=== PATIENT | male | born 1980 | race Caucasian/White ===

== ENCOUNTER 2019-10-07 02:48 | Emergency (ER) | payer OTHER, SELFPAY ==
[2019-10-07 02:50] VITALS: BP 145/83; PULSE 99; RESP 17; TEMP 37.1; O2SAT 95; BMI 39.9
--- NOTE | 2019-10-07 03:08 | EKG12_ITS ---
Test Reason : DYSRHYTHMIA Blood Pressure : / mmHG Vent. Rate : 095 BPM Atrial Rate : 095 BPM P-R Int : 136 ms QRS Dur : 106 ms QT Int : 356 ms P-R-T Axes : 051 -18 042 degrees QTc Int : 447 ms Normal sinus rhythm Normal ECG Confirmed by BLANCA MARTINEZ ([id number]), society editor GARRETT SOFIA ([id number] on 10/09/2019 2:33:57 PM Referred By: MANDO Confirmed By:BLANCA MARTINEZ
--- NOTE | 2019-10-07 03:08 | RAD_ITS ---
STUDY: X-RAY CHEST REASON FOR EXAM: Male, 38 years old. CHEST CONGESTION WITH TIGHTNESS IN CHEST X 2+ DAYS TECHNIQUE: Frontal and lateral views of the chest. COMPARISON: None. FINDINGS: Right midlung zone nodular opacity There is no demonstrated pleural abnormality. Normal size heart. Normal mediastinum and rach. Normal visualized pulmonary arteries. Normal visualized aortic arch and descending thoracic aorta. There are diffuse degenerative changes of the visualized thoracic spine. Normal visualized ribs, clavicles, and shoulders. There is no demonstrated abnormality of the visualized soft tissue structures of the upper abdomen. RAD/Chest PA and Lateral IMPRESSION: Right midlung zone nodular opacity. This may be infectious inflammatory etiology. However recommend 3-4 week follow-up to ensure resolution. Underlying neoplasm cannot be excluded. Electronically Signed: Andres Drew, at 4:49 EDT Tel , Service support ,
--- NOTE | 2019-10-07 03:15 | ED.DCSUM_ITS ---
History of Present Illness Chief Complaint: Chest Other Detail of Chief Complaint: Shortness of breath Informant: Patient Onset: Hours - Several Activity at onset: Rest Timing: Continuous Quality: Wheezing Current Severity: Mild Maximum Severity: Moderate Worsened by: Exertion Relieved by: Albuterol Associated Symptoms: Cough - Nonproductive, Fever - Subjective low-grade according to patient, Sore throat - Several days ago, resolved now. Negative for: Ear pain Chest Pain: Tightness - Mild Narrative: Patient has been coughing for a few days without fevers, he had a sore throat a couple days ago and called into his primary care doctor, they prescribed him a azithromycin which he has been taking for now the third day, he was not seen or evaluated. His sore throat is gone but the cough persisted and now he feels congested in his chest, like he cannot get anything out, having a little tightness, more shortness of breath than discomfort, he took some puffs from his 's albuterol inhaler which helped and he presents for evaluation. Denies any swelling in his legs. His is a nurse here, has not been ill recently, and he has had no contact with anyone he knows of with coronavirus infection. He presents during the national coronavirus emergency declaration. He has no past medical history, no history of asthma. No recent travel. No history of DVT or PE. Past Medical History - Allergies and Home Meds Allergies/Adverse Reactions: Allergies No Known Allergies Allergy (Verified 04/28/15 22:38) Primary Care Physician: Montez Jeffries MD [Primary Care Provider] - Past Medical History: None Lives: Spouse/ Significant Other Smoking Status: Never smoker Review of Systems General: Reports: Fever, Subjective. Denies: Chills, Sweats Eyes: Denies: Visual changes - bilaterally, Diplopia ENT: Reports: Sore throat - Resolved. See HPI.. Denies: Bilateral ear pain, Rhinorrhea Cardiovascular: Reports: Chest pain. Denies: Palpitations, Heart racing Respiratory: Reports: Dyspnea, Cough. Denies: Sputum, Orthopnea Gastrointestinal: Denies: Abdominal pain, Nausea, Vomiting, Diarrhea, Melena, Hematochezia Genitourinary: Denies: Dysuria, Hematuria, Frequency Musculoskeletal: Denies: Myalgias, Neck pain, Back pain, Swelling, Extremity Pain Skin: Denies: Rash, Wounds Neurological: Denies: Headache, Weakness, Numbness Physical Exam Vital Signs/Narrative: Vital Signs Temp Pulse Resp BP Pulse Ox 10/07/19 02:50 98.8 F 99 17 145/83 H 95 Inital Vital Signs reviewed: Yes General: Well nourished, Well developed, No Acute Distress - Conversive in full sentences Head: Normocephalic, Atraumatic Eyes: Perrl, EOMI ENT: Moist mucous membranes, No rhinorrhea, - - Posterior oropharynx clear and normal Neck: Supple, Nontender, No lymphadenopathy Cardiovascular: Regular rate, Regular rhythm, No murmurs, Normal S1, Normal S2. Negative for: Tachycardia Respiratory: No distress, Chest nontender, Wheezing - Slight inspiratory bilaterally. Negative for: Rales, Rhonchi Abdomen: Soft, Nontender, Nondistended, Normal bowel sounds Back: Nontender, Normal Inspection Extremities: Nontender, No edema. Negative for: Calf Tenderness Skin: Normal color, No rash, No Trauma Neurological: Alert, Oriented x3, Cranial nerves II-XII grossly intact, Normal Strength, Normal Sensation, Normal Gait Psychological: Normal affect, Normal Mood Diagnostic/Tx/Re-eval Impressions Chest X-Ray 10/07/19 03:08 IMPRESSION: Right midlung zone nodular opacity. This may be infectious inflammatory etiology. However recommend 3-4 week follow-up to ensure resolution. Underlying neoplasm cannot be excluded. Electronically Signed: Andres Viki, at 4:49 EDT Tel , Service support , 10/07/19 03:08 Chest PA and Lateral [RAD] Stat Laboratory Results 10/07/19 10/07/19 03:20 03:20 WBC 7.4 RBC 5.49 Hgb 15.6 Hct 46.4 MCV 84.5 MCH 28.4 MCHC 33.6 RDW Std Deviation 43.4 RDW Coeff of Ceasar 14.3 Plt Count 189 MPV 10.6 Immature Gran % (Auto) 0.900 Neut % (Auto) 51.8 Lymph % (Auto) 25.0 [place] % (Auto) 18.9 H Eos % (Auto) 2.7 Baso % (Auto) 0.7 Absolute Neuts (auto) 3.8 Absolute Lymphs (auto) 1.85 Nucleated RBC % 0 Sodium 138 Potassium 3.4 L Chloride 107 Carbon Dioxide 24.0 Anion Gap 7 BUN 9 Creatinine 0.98 Estim Creat Clear Calc 109.98 Est GFR (MDRD) Af Amer 109 Est GFR (MDRD) Non-Af 90 BUN/Creatinine Ratio 9.2 L Glucose 134 H Calcium 8.7 Troponin I < 0.015 - Rhythm Strip Rhythm Strip: Sinus Rhythm Rate: 95 Ectopy: None - EKG Initial EKG Interpretation: Sinus Rhythm, No Acute Injury Pattern - normal EKG Prior: Unchanged Treatment - Dyspnea: Albuterol Repeat Evaluation: Improved - Medical Decision Making Patient was treated with an albuterol aerosol since he was having some slight wheezing, he did improve from now to remain very comfortable, clinically and hemodynamically stable during his visit. Chest x-ray showed an abnormal area in the right midlung zone, pneumonia is in the differential given his symptoms, but the radiologist could not tell for sure. I obtained a CT for further evaluation of this, and to rule out a mass after discussing with the patient. It does show a patchy airspace disease consistent with pneumonia. There also is a small nodule. This can be followed up on, radiology is recommending follow- up CT in 3-4 weeks to ensure resolution. I think COVID is less likely the cause of this, especially given the distribution which is unusual for coronavirus and the fact that his labs look normal and he has no leukopenia and actually has a mild trend toward a leftward shift, but certainly not able to ruled out. He does not meet the [facility] laboratory criteria for COVID testing. Furthermore, they are close and I am not able to call to ask for permission to obtain an outpatient test on him. His doctor may be able to arrange this, however. He is on a azithromycin. I think that is appropriate tr eatment for this if it is in fact bacterial pneumonia. At this time I do not think I would change that, there is no evidence that he has failed treatment. I think prescribing him an albuterol inhaler for symptomatic treatment and having him follow-up for repeat evaluation would be reasonable, and if he has interval significant worsening he is always welcome to return which we discussed. He and the are comfortable with this overall plan. ED Disposition - Plan for ED Patient: Disposition: Home or Assisted Living Diagnosis: Pneumonia Instructions: ED PNEUMONITIS Adult Prescriptions: Albuterol Inhaler [Ventolin Hfa] 1 - 2 puff INHALATION Q4H PRN PRN #1 inhaler PRN Reason: Wheezing Transmission Status: Pending to [facility] Referrals: Montez Jeffries MD [Primary Care Provider] - 3-5 Days
[2019-10-07 03:24] VITALS: BP 145/83; PULSE 99; RESP 17; TEMP 37.1; O2SAT 95
[2019-10-07 03:26] LABS: Absolute Lymphocyte Count 1.85 X10^3/uL (0.83-4.51); Absolute Neutrophil Count 3.8 X10^3/uL (2.0-7.7); Basophil# 0.05 X10^3/uL; Basophil% 0.7 % (0-1); Eosinophils% 2.7 % (0-5); Hematocrit 46.4 % (40-54); Hemoglobin 15.6 g/dL (13.0-16.5); Lymphocyte # 1.85 X10^3/ul (4.0); Mean Corp Hgb Conc 33.6 g/dL (32-36); Mean Corpuscular Hgb 28.4 pg (27.0-32.0); Mean Corpuscular Volume 84.5 fL (80-94); Mean Platelet Vol. 10.6 fl (6.2-12.0); Monocyte% 18.9 % (0-10); NRBC Flagged by Analyzer 0 % (0-5); Neutrophil # 3.82 X10^3/uL (2.7-7.7); Neutrophil % 51.8 % (47-70); Platelet Count 189 K/mm3 (150-450); RBC Distribution Width CV 14.3 % (11.6-14.6); RBC Distribution Width SD 43.4 fl (35.1-43.9); Red Blood Count 5.49 M/mm3 (4.6-6.2); White Blood Count 7.4 K/mm3 (4.4-11.0)
[2019-10-07 03:27] VITALS: PULSE 95; RESP 16
[2019-10-07] MEDS: Ipratropium/Albuterol Sulfate 3 ML AMPUL.NEB INHALATION (03:27)
[2019-10-07 03:43] LABS: Anion Gap 7 (5-15); BUN 9 mg/dL (7-18); BUN/Creat Ratio 9.2 RATIO (10-20); Calcium,Total 8.7 mg/dL (8.5-10.1); Chloride 107 mmol/L (98-107); Creatinine, Serum 0.98 mg/dL (0.70-1.30); EST Glomerular Filtration Rate 90 mL/min (>60); Est Glom Filt Rate - Afr Amer 109 mL/min (>60); Estimated Creatinine Clearance 109.98 ml/min; Glucose 134 mg/dL (74-106); Potassium 3.4 mmol/L (3.5-5.1); Sodium Level 138 mmol/L (136-145)
--- NOTE | 2019-10-07 05:06 | CT_ITS ---
STUDY: CT CHEST WITHOUT CONTRAST REASON FOR EXAM: Male, 38 years old. SOB,FEVER,COUGH RADIATION DOSAGE (If Supplied By Facility): CTDIvol = ( 19.56 ) mGy, DLP = ( 699.09 ) mGycm TECHNIQUE: Transaxial imaging was performed without the administration of intravenous contrast material. Individualized dose optimization techniques were used for this CT. COMPARISON: None. FINDINGS: No pneumothorax or pleural effusion identified. Nodular infiltrates within the left upper lobe and right upper lobe. There is atelectasis/scarring in the lungs. Central airway appears patent. 5 mm right lower lobe pulmonary nodule. Normal heart and pericardium. Coronary artery calcifications. Nonspecific subcentimeter short axis mediastinal lymph nodes. No aortic aneurysm identified. Cannot evaluate for dissection or pulmonary embolism due to lack of IV contrast. There are multi-level degenerative changes of the thoracic spine. There is no demonstrated abnormality of the visualized upper abdomen. CT/Chest without Contrast IMPRESSION: Bilateral upper lobe pulmonary nodular patchy infiltrates. More so within the right upper lobe. Likely infectious inflammatory etiology. However recommend follow-up CT scan in 3-4 weeks to ensure resolution and to exclude underlying neoplasm. Right lower lobe 5 mm pulmonary nodule. Again correlate with above-mentioned scan for resolution. Other findings as above. Electronically Signed: Andres Drew, at 6:01 EDT Tel , Service support ,
[2019-10-07 05:44] VITALS: BP 138/82; PULSE 90; RESP 16; O2SAT 99
[2019-10-07 06:40] VITALS: BP 138/82; PULSE 90; RESP 16; O2SAT 99
== END 2019-10-07 06:58 | disposition home or self-care (01) ==
PROVIDERS: Emergency Provider Emergency Medicine; PCP Family Medicine
DX: J18.9 Pneumonia, unspecified organism (principal); R91.1 Solitary pulmonary nodule
CPT/HCPCS: 71046; 71250; 80048; 84484; 85025; 93005; 94640; 99283; A4216

== ENCOUNTER → 2019-11-10 08:23 | Outpatient (CLI) | payer OTHER, SELFPAY ==
--- NOTE | 2019-11-10 08:34 | CT_ITS ---
STUDY: CT CHEST WITH CONTRAST REASON FOR EXAM: Male, 38 years old. NODULE and pneumonia f/u. Prior cholecystectomy. RADIATION DOSAGE (If Supplied By Facility): CTDIvol = ( 14.78 ) mGy, DLP = ( 743.82 ) mGycm TECHNIQUE: Transaxial imaging was performed following intravenous administration of IV 100mL [id number]-300. Multiplanar coronal and sagittal images were reformatted. Individualized dose optimization techniques were used for this CT. COMPARISON: Comparison is made with prior study dated October 07, 2019. FINDINGS: The previously seen infiltrate in the posterior aspect of the right upper lobe as well as a nodular infiltrate in the left upper lobe have cleared. No new consolidation or pulmonary nodules are seen at this time. There is no demonstrated pleural abnormality. Normal heart and pericardium. Normal mediastinum. Normal hilar regions. Normal enhanced pulmonary arteries. Normal aorta arch and descending thoracic aorta. Normal osseous structures. The patient is status post cholecystectomy. CT/Chest WITH Contrast IMPRESSION: The lungs are now clear. Electronically Signed: Alan Love, at 14:50 EDT , Service support ,
== END ==
PROVIDERS: PCP Family Medicine; Referring Provider Family Medicine; Visit Provider Family Medicine
DX: R91.1 Solitary pulmonary nodule (principal)
CPT/HCPCS: 71260; Q9967

== ENCOUNTER 2020-07-30 16:18 | Outpatient (RCR) | payer OTHER, SELFPAY ==
[2020-07-30] MEDS: COVID-19 VACC, MRNA(PFIZER)/PF 30 MCG/0.3 ML SYRINGE IM (16:32)
[2020-08-20] MEDS: COVID-19 VACC, MRNA(PFIZER)/PF 30 MCG/0.3 ML SYRINGE IM (10:18)
== END 2020-07-30 23:59 ==
LOC: IMMUN 16:18
PROVIDERS: PCP Family Medicine; Referring Provider Family Medicine; Visit Provider Family Medicine
DX: Z23 Encounter for immunization (principal)
CPT/HCPCS: 0001A; 0002A; 91300

== ENCOUNTER → 2022-07-21 | Outpatient (CLI) | payer OTHER, SELFPAY ==
[2022-07-21 15:44] LABS: Anion Gap 9 (5-15); BUN 13 mg/dL (7-18); BUN/Creat Ratio 13.4 RATIO (10-20); Calcium,Total 9.7 mg/dL (8.5-10.1); Chloride 106 mmol/L (98-107); Cholesterol 274 mg/dL (200); Creatinine, Serum 0.97 mg/dL (0.70-1.30); EST Glomerular Filtration Rate 89 mL/min (>60); Est Glom Filt Rate - Afr Amer 108 mL/min (>60); Glucose 108 mg/dL (74-106); High Density Lipoprotein 45 mg/dL; Sodium Level 137 mmol/L (136-145); Thyroid Stim Hormone (TSH) 1.53 uIU/mL (0.358-3.74); Triglycerides 169 mg/dL; Very Low Density Lipoprotein 34 mg/dL (5-40)
[2022-07-21 16:16] LABS: Vitamin D,25 Hydroxy 28.3 ng/mL
== END | disposition home or self-care (01) ==
LOC: MFPLAB 11:24
PROVIDERS: PCP Family Medicine; Referring Provider Family Medicine; Visit Provider Family Medicine
DX: Z00.00 Encounter for general adult medical examination without abnormal findings (principal); N52.9 Male erectile dysfunction, unspecified; F32.A Depression, unspecified
CPT/HCPCS: 36415; 80048; 80061; 82306; 84403; 84443

== ENCOUNTER → 2024-10-16 | Outpatient (CLI) | payer OTHER, SELFPAY ==
--- NOTE | 2024-10-16 11:42 | RAD_ITS ---
PROCEDURE: ELBOW MIN 3 VIEWS 10/16/2024 REASON FOR EXAM: PAIN TECHNIQUE: Three views of the right elbow were obtained. COMPARISON: None. FINDINGS: There is no evidence of fracture or dislocation. There are no significant joint space abnormalities. There is no elbow joint effusion. There is a large olecranon spur. There is no olecranon bursitis. RAD/Elbow min 3 Views IMPRESSION: No evidence of acute injury or significant arthropathy. Olecranon spur. Reading Location: [id number]
== END | disposition home or self-care (01) ==
LOC: MTRAD 11:41
PROVIDERS: PCP Family Medicine; Referring Provider Family Medicine; Visit Provider Family Medicine
DX: M25.521 Pain in right elbow (principal)
CPT/HCPCS: 73080